=== PATIENT | male | born 1935 | race Caucasian/White ===

== ENCOUNTER 2018-07-01 16:11 | Emergency (ER) | payer OTHER ==
--- NOTE | 2018-07-01 16:43 | ED Physician Documentation ---
Upper Extremity Injury - HISTORIAN Historian: patient, other (sister, brother) - HPI Stated Complaint: elbow pain Chief Complaint: Upper Extremity Injury Additional Information: Riding [place] 3 days ago and hit right elbow on doorway. Can't straighten elbow and it hurts. Tried an elbow brace from [employer] but that increased the pain. Points to lateral epicondyle as site of worst pain. Denies previous injury to this elbow. No oother modifying factors or associated signs. - ROS CONST: no problems - PAST HX Past History: none, other (appendectomy, prostate surgery) Allergies/Adverse Reactions: Allergies Allergy/AdvReac Type Severity Reaction Status Date / Time No Known Allergies Allergy Unverified 07/01/18 16:33 Home Medications: Ambulatory Orders Medication Instructions Recorded Acetaminophen [Tylenol Extra 1,000 mg PO Q8 PRN #60 tablet 07/01/18 Strength] Albuterol Sulfate [Proair HFA] 1 inh IH 07/01/18 Celecoxib [Celebrex] 200 mg PO QDAY 07/01/18 Citalopram Hydrobromide 10 mg PO QDAY 07/01/18 [Citalopram HBr] Finasteride [Proscar] 5 mg PO HS 07/01/18 Fluticasone Propionate [Flovent 50 mcg IH 07/01/18 Diskus] Gemfibrozil [Lopid] 600 mg PO QDAY 07/01/18 Glucosamine/D3/Boswellia Jovita 1 each PO QDAY 07/01/18 [Osteo Bi-Flex Tablet] LORazepam [Ativan] 0.5 mg PO QDAY 07/01/18 Lisinopril [Prinivil] 5 mg PO QD 07/01/18 Metoprolol Succinate [Toprol Xl] 50 mg PO DAILY 07/01/18 Montelukast Sodium [Singulair] 10 mg PO QDAY 07/01/18 Tamsulosin HCl [Flomax] 0.4 mg PO [id number] 07/01/18 Venlafaxine HCl [Venlafaxine HCl 75 mg PO QDAY 07/01/18 ER] - SOCIAL HX Smoking History: non-smoker - FAMILY HX Family History: no significant history - VITAL SIGNS Vital Signs: Vital Signs Temp Pulse Resp BP Pulse Ox 98.6 F 61 20 126/68 95 07/01/18 16:16 07/01/18 17:14 07/01/18 17:14 07/01/18 17:14 07/01/18 16:16 - REVIEWED ASSESSMENTS Nursing Assessment Reviewed: Yes Vitals Reviewed: Yes Progress - Progress Progress: Report Submission Date: Jul 01, 2018 4:52:26 PM CDT Patient Study Name: ALEX RECINOS Date: Jul 01, 2018 4:31:48 PM CDT Modality Type: DX Gender: M Description: UPPER EXTREMITY : 33 Institution: [facility] Physician: JUAN FONTAINE - ER Examination: Plain film elbow History: PAIN X 3 DAYS; UNABLE TO EXTEND COMPLETELY (Hx) Comparison exams: None provided Findings: 3 views of the elbow demonstrate normal cortical margins. Scattered degenerative spurring. No fracture. No dislocation. Radial head is within normal limits. No joint effusion Impression: Degenerative changes. No acute appearing osseous abnormality. Electronically signed on Jul 01, 2018 4:52:26 PM CDT by: Rui Coe ED Results Lab/Radiology - Orders Orders: ED Orders Category Date Time Status ELBOW 3 VIEWS [RAD] Stat Exams 07/01/18 Completed Upper Extremity Injury Physic - Physical Exam General Appearance: no acute distress, alert, other (quite pleasant) Hand: normal inspection, no evidence of injury, normal ROM Wrist: normal inspection, no evidence of injury (right radial pulse 2+) Elbow/Forearm: limited ROM (lacks 15 degrees extension. sash sticker pronate and supinate w/o discomfort) Shoulder: no evidence of injury Neuro/Vascular/Tendon: no vascular compromise, motor nml, sensation nml. No: abnml color, abnml warmth Skin: warm,dry Head/ENT: nml inspection Neck/Back: nml inspection Resp/CVS: no resp. distress Discharge Clincal Impression: Contusion, elbow Qualifiers: Encounter type: initial encounter Laterality: right Qualified Code(s): S50.01XA - Contusion of right elbow, initial encounter Prescriptions: Acetaminophen [Tylenol Extra Strength] 1,000 mg PO Q8 PRN #60 tablet PRN Reason: Pain Referrals: Bang Lala MD [Primary Care Provider] - 2 Days Condition: Good Disposition: 01 HOME, SELF-CARE Decision to Admit: NO Decision Time: 16:16
--- NOTE | 2018-07-01 16:57 | Diagnostic Imaging Report ---
JUAN FONTAINE [facility] [address] [facility] [address] [address] Report Submission Date: Jul 01, 2018 4:52:26 PM CDT Patient Study Name: ALEX RECINOS Date: Jul 01, 2018 4:31:48 PM CDT Modality Type: DX Gender: M Description: UPPER EXTREMITY : 33 Institution: [facility] Physician: JUAN FONTAINE Examination: Plain film elbow History: PAIN X 3 DAYS; UNABLE TO EXTEND COMPLETELY (Hx) Comparison exams: None provided Findings: 3 views of the elbow demonstrate normal cortical margins. Scattered degenerative spurring. No fracture. No dislocation. Radial head is within normal limits. No joint effusion Impression: Degenerative changes. No acute appearing osseous abnormality. Electronically signed on Jul 01, 2018 4:52:26 PM CDT by: Rui POLANCO
[2018-07-01 17:15] VITALS: BP 126/68
== END 2018-07-01 17:13 | disposition home or self-care (01) ==
LOC: ED 16:11
DX: S50.01XA Contusion of right elbow, initial encounter (principal); W22.8XXA Striking against or struck by other objects, initial encounter; Y92.9 Unspecified place or not applicable; Y93.9 Activity, unspecified; Y99.9 Unspecified external cause status
CPT/HCPCS: 73080

== ENCOUNTER 2019-08-11 09:18 | Emergency (ER) | payer OTHER ==
--- NOTE | 2019-08-11 09:37 | ED Physician Documentation ---
Hand Injury - HISTORIAN Historian: patient - HPI Stated Complaint: right hand first and third finger swelling Chief Complaint: Upper Extremity Problem Onset: just prior to arrival Where: home Severity: moderate Duration: persistent since Context: other (He does not recall an injury ) Location of Injury: R hand Modifying Factors: pain on movement Further Comments: yes (He states he is does not recall any injury but this am his middle finger of right hand had increased pain on movement and he has some swelling. He is not sure of what meds he takes but he does take them all.) - ROS CONST: no problems - PAST HX Past History: cardiac disease Immunizations: UTD Allergies/Adverse Reactions: Allergies Allergy/AdvReac Type Severity Reaction Status Date / Time No Known Allergies Allergy Verified 08/11/19 09:32 Home Medications: Ambulatory Orders Medication Instructions Recorded Acetaminophen [Tylenol Extra 1,000 mg PO Q8 PRN #60 tablet 07/01/18 Strength] Albuterol Sulfate [Proair HFA] 1 inh IH 1T 07/01/18 Celecoxib [Celebrex] 200 mg PO QDAY 07/01/18 Citalopram Hydrobromide 20 mg PO QDAY 07/01/18 [Citalopram HBr] Finasteride [Proscar] 5 mg PO HS 07/01/18 Gemfibrozil [Lopid] 600 mg PO QDAY 07/01/18 LORazepam [Ativan] 0.5 mg PO QDAY 07/01/18 Lisinopril [Prinivil] 5 mg PO QD 07/01/18 Metoprolol Succinate [Toprol Xl] 50 mg PO DAILY 07/01/18 Montelukast Sodium [Singulair] 10 mg PO QDAY 07/01/18 Tamsulosin HCl [Flomax] 0.4 mg PO [id number] 07/01/18 Alfuzosin HCl [Alfuzosin HCl ER] 10 mg PO DAILY 08/11/19 Allopurinol [Zyloprim] 100 mg PO DAILY 08/11/19 Hydrochlorothiazide 25 mg PO DAILY 08/11/19 - SOCIAL HX Smoking History: non-smoker Alcohol Use: none Drug Use: none - FAMILY HX Family History: none - VITAL SIGNS Vital Signs: Vital Signs Temp Pulse Resp BP Pulse Ox 126/68 07/01/18 17:14 - REVIEWED ASSESSMENTS Nursing Assessment Reviewed: Yes Vitals Reviewed: Yes Hand Injury Physical Exam - Exam General Appearance: no acute distress, alert Hand: soft tissue tenderness (middle finger ), swelling, limited ROM, pain (with bending of middle finger ) Wrist: normal inspection Neuro: sensation nml Vascular: no vascular compromise Tendons: tendon function nml Forearm/Elbow/Arm: uninjured above wrist Skin: warm/dry Head/ENT: nml inspection Neck/Back: nml inspection Resp/CVS: chest non-tender, breath sounds nml, heart sounds nml, no resp. distress, lungs clear Discharge Clincal Impression: Pain in finger of right hand Referrals: Roger Aguirre MD [Primary Care Provider] - 2 Days Comments: 1. Continue meds at home 2. Follow up with PCP for any continued concerns 3. Return to ER for any increasing concerns Condition: Stable Disposition: 01 HOME, SELF-CARE Decision to Admit: NO Date of Decison to Admit: 08/11/19 Decision Time: 10:58
[2019-08-11] MEDS ORDERED: KETOROLAC TROMETHAMINE 60 MG/2 ML VIAL IM ONE (10:21)
[2019-08-11] MEDS ORDERED: methylPREDNISolone ACETATE 80 MG/ML VIAL IM ONE (10:21)
[2019-08-11 11:06] VITALS: BP 120/43
--- NOTE | 2019-08-11 16:22 | Diagnostic Imaging Report ---
MOHINI DICKEY [facility] [address] [facility] [address] [place], [place]. [address] Report Submission Date: Aug 11, 2019 10:07:44 AM CDT Patient Study Name: ALEX RECINOS Date: Aug 11, 2019 9:37:46 AM CDT Modality Type: DX Gender: M Description: HAND 3 VIEWS OR MORE : 33 Institution: [facility] Physician: MOHINI DICKEY Exam: Right hand. History: 3Rd finger pain and swelling. PA, lateral and oblique view of the right hand are submitted. No signs of acute fracture or dislocations are identified. Degenerate changes at the interphalangeal joints and at the metacarpophalangeal joints are noted. Marked arthritic changes at the 1st carpometacarpal joint is noted. Mild soft tissue swelling over the dorsum of the hand is noted. Impression: Arthritic changes. Soft tissue swelling. Electronically signed on Aug 11, 2019 10:07:44 AM CDT by: Arsh POLANCO
== END 2019-08-11 10:58 | disposition home or self-care (01) ==
LOC: ED 09:18
DX: M79.644 Pain in right finger(s) (principal)
CPT/HCPCS: 73130; 96372; 99283; J1040; J1885